=== PATIENT | male | born 1975 | race Caucasian/White ===

== ENCOUNTER 2022-11-17 15:05 | Emergency (ER) | payer OTHER ==
[~2022-11-17] VITALS: Wt 74.8 kg
== END 2022-11-17 19:10 | disposition home or self-care (01) ==
LOC: ED 15:05
DX: S31.010A Laceration without foreign body of lower back and pelvis without penetration into retroperitoneum, initial encounter (principal); S01.01XA Laceration without foreign body of scalp, initial encounter; S71.112A Laceration without foreign body, left thigh, initial encounter; V58.5XXA Driver of pick-up truck or van injured in noncollision transport accident in traffic accident, initial encounter; Y93.I9 Activity, other involving external motion; Y92.488 Other paved roadways as the place of occurrence of the external cause; Y99.8 Other external cause status